=== PATIENT | male | born 1940 ===

== ENCOUNTER 2021-08-03 04:42 | Inpatient (IN) | payer MEDICARE ==
[2021-08-03] MEDS ORDERED: ZIPRASIDONE MESYLATE 20 MG VIAL IM ONE ×2 (05:16→06:08)
[2021-08-03] MEDS ORDERED: SODIUM CHLORIDE 0.9% 500 ML 500 ML IV ONE (05:43)
[2021-08-03] MEDS ORDERED: ACETAMINOPHEN 650 MG RECT SUPP PR STA (05:43)
--- NOTE | 2021-08-03 06:22 | XRay Report ---
CHEST 1 VIEW 08/03/2021 5:16 AM INDICATION / CLINICAL INFORMATION: possible Sepsis. COMPARISON: None available. FINDINGS: SUPPORT DEVICES: None. HEART / MEDIASTINUM: No significant abnormality. LUNGS / PLEURA: Mild pulmonary vascular indistinctness. There is no focal consolidation. No pneumotho rax. ADDITIONAL FINDINGS: No significant additional findings. IMPRESSION: 1. Pulmonary edema. Signer Name: Jordan Corey DO Signed: 08/03/2021 6:18 AM Workstation Name: [id number]
[2021-08-03 06:23] LABS: Mean Corpuscular HGB Conc 31 % (32-34); Mean Corpuscular Volume 82 fl (84-94); Platelet Count 258 K/mm3 (140-440); Red Blood Count 5.44 M/mm3 (3.65-5.03); Red Cell Distribution Width 14.9 % (13.2-15.2)
[2021-08-03 06:32] LABS: Hematocrit 44.6 % (35.5-45.6); Hemoglobin 13.8 gm/dl (11.8-15.2)
[2021-08-03 06:35] LABS: INR 1.02 (0.87-1.13)
[2021-08-03] MEDS ORDERED: SODIUM CHLORIDE 0.9% 1000 ML 1,000 ML IV ONE ×3 (06:42→08:31)
[2021-08-03 06:43] LABS: Albumin 4.1 g/dL (3.9-5); Calcium 9.1 mg/dL (8.4-10.2)
--- NOTE | 2021-08-03 06:44 | Emergency Department Report ---
HPI - General Chief Complaint: Urogenital-Male Time Seen by Provider: 08/03/21 06:07 - HPI HPI: This is a 81-year-old -Malag[place] male presents to the emergency department via EMS from his [facility] home with the complaint of a fever and altered mental status. He has a suprapubic Herring catheter in placed and apparently the patient has not been putting out any urine into the collection bag since at least 9 PM last night. He has a past medical history listed as hypertension, COPD, dementia, diabetes. Patient does present with a fever and tachycardia and a code sepsis was initiated. On investigation it appears that the tubing between the Herring catheter in the collection bag had been clamped accidentally. This patient came in prior to my shift starting. As per the overnight physician, the patient was very agitated and they were unable to start his evaluation without giving treatment/sedation. The patient received 20 mg of Geodon. ED Past Medical Hx - Past Medical History Previous Medical History?: Yes - Surgical History Past Surgical History?: Yes - Social History Smoking Status: Unknown if ever smoked ED Review of Systems ROS: Stated complaint: ABDOMINAL PAIN Other details as noted in HPI Comment: Unobtainable due to pts medical conditions Physical Exam - Physical Exam Vital Signs: Vital Signs 08/03/21 08/03/21 08/03/21 05:00 05:37 05:45 Temperature 101 F H Pulse Rate 132 H 120 H 119 H Respiratory 36 H 35 H 34 H Rate Blood Pressure 144/79 98/47 104/46 O2 Sat by Pulse 84 94 96 Oximetry 08/03/21 06:01 Temperature Pulse Rate 119 H Respiratory 29 H Rate Blood Pressure 96/48 O2 Sat by Pulse 97 Oximetry Physical Exam: GENERAL: The patient is well-developed well-nourished. HENT: Normocephalic. Atraumatic. Patient has moist mucous membranes. EYES: Pupils equal reactive to light bilaterally. NECK: Supple. Trachea is midline. CHEST/LUNGS: Clear to auscultation. There is no respiratory distress noted. HEART/CARDIOVASCULAR: Regular. There is no tachycardia. There is no murmur. ABDOMEN: Abdomen is soft, nontender. Patient has normal bowel sounds. There is no abdominal distention. Suprapubic Herring catheter in place. SKIN: Skin is warm and dry. NEURO: Patient is very sleepy after receiving sedation. He is arousable but goes right back to sleep if not continuously stimulated. Otherwise the patient just make some grunting sounds. MUSCULOSKELETAL: There is no obvious deformity. ED Course Vital Signs 08/03/21 08/03/21 08/03/21 05:00 05:37 05:45 Temperature 101 F H Pulse Rate 132 H 120 H 119 H Respiratory 36 H 35 H 34 H Rate Blood Pressure 144/79 98/47 104/46 O2 Sat by Pulse 84 94 96 Oximetry 08/03/21 06:01 Temperature Pulse Rate 119 H Respiratory 29 H Rate Blood Pressure 96/48 O2 Sat by Pulse 97 Oximetry - Reevaluation(s) Reevaluation #1: 08/03/21 06:51 Patient's chest x-ray shows some evidence of pulmonary edema. Therefore the patient will receive 500 cc of IV fluid resuscitation instead of the 30 cc/kg for the sepsis protocol, as the patient is not currently intubated and we do not want decompensation from volume overload. ED Medical Decision Making - Lab Data Result diagrams: 08/03/21 06:00 08/03/21 06:00 Lab Results 08/03/21 08/03/21 08/03/21 Range/Units 06:00 06:00 06:00 WBC 4.4 L (4.5-11.0) K/mm3 RBC 5.44 H (3.65-5.03) M/mm3 Hgb 13.8 (11.8-15.2) gm/dl Hct 44.6 (35.5-45.6) % MCV 82 L (84-94) fl MCH 25 L (28-32) pg MCHC 31 L (32-34) % RDW 14.9 (13.2-15.2) % Plt Count 258 (140-440) K/mm3 [place] % (Auto) 0.5 (0.0-7.3) % Eos % (Auto) 0.3 (0.0-4.3) % [place] # (Auto) 0.0 (0.0-0.8) K/mm3 Eos # (Auto) 0.0 (0.0-0.4) K/mm3 Baso # (Auto) 0.0 (0.0-0.1) K/mm3 Add Manual Diff Complete Total Counted 100 Seg Neutrophils % Diesel Locomotive Engineer Seg Neuts % (Manual) 92.0 H (40.0-70.0) % Band Neutrophils % 6.0 % Lymphocytes % (Manual) 1.0 L (13.4-35.0) % Monocytes % (Manual) 1.0 (0.0-7.3) % Nucleated RBC % Not Reportable Seg Neutrophils # 4.0 (1.8-7.7) K/mm3 Seg Neutrophils # Man 4.0 (1.8-7.7) K/mm3 Band Neutrophils # 0.3 K/mm3 Lymphocytes # (Manual) 0.0 L (1.2-5.4) K/mm3 Abs React Lymphs (Man) 0.0 K/mm3 Monocytes # (Manual) 0.0 (0.0-0.8) K/mm3 Eosinophils # (Manual) 0.0 (0.0-0.4) K/mm3 Basophils # (Manual) 0.0 (0.0-0.1) K/mm3 Metamyelocytes # 0.0 K/mm3 Myelocytes # 0.0 K/mm3 Promyelocytes # 0.0 K/mm3 Blast Cells # 0.0 K/mm3 WBC Morphology Not Reportable Hypersegmented Neuts Not Reportable Hyposegmented Neuts Not Reportable Hypogranular Neuts Not Reportable Smudge Cells Not Reportable Toxic Granulation Not Reportable Toxic Vacuolation Not Reportable Dohle Bodies Not Reportable Pelger-Huet Anomaly Not Reportable Stew Rods Not Reportable Platelet Estimate Consistent w auto Clumped Platelets Not Reportable Plt Clumps, EDTA Not Reportable Large Platelets 1+ Giant Platelets Not Reportable Platelet Satelliting Not Reportable Plt Morphology Comment Not Reportable RBC Morphology Not Reportable Dimorphic RBCs Not Reportable Polychromasia Not Reportable Hypochromasia 1+ Poikilocytosis Not Reportable Anisocytosis Not Reportable Microcytosis Not Reportable Macrocytosis Not Reportable Spherocytes Not Reportable Pappenheimer Bodies Not Reportable Sickle Cells Not Reportable Target Cells Not Reportable Tear Drop Cells Not Reportable Ovalocytes Not Reportable Helmet Cells Not Reportable Edwards-Cullomburg Bodies Not Reportable Irvine Rings Not Reportable [place] Cells Not Reportable Bite Cells Not Reportable Crenated Cell Not Reportable Elliptocytes Not Reportable Acanthocytes (Spur) Not Reportable Rouleaux Not Reportable Hemoglobin C Crystals Not Reportable Schistocytes Not Reportable Malaria parasites Not Reportable Nilesh Bodies Not Reportable Hem Pathologist Commnt No PT 14.5 (12.2-14.9) Sec. INR 1.02 (0.87-1.13) D-Dimer (0-234) ng/mlDDU VBG pH (7.320-7.420) Sodium 146 H (137-145) mmol/L Potassium 3.5 L (3.6-5.0) mmol/L Chloride 105.8 (98-107) mmol/L Carbon Dioxide 25 (22-30) mmol/L Anion Gap 19 mmol/L BUN 16 (9-20) mg/dL Creatinine 1.3 (0.8-1.3) mg/dL Estimated GFR 53 ml/min BUN/Creatinine Ratio 12 % Glucose 57 L (75-100) mg/dL Lactic Acid (0.7-2.0) mmol/L Calcium 9.1 (8.4-10.2) mg/dL Total Bilirubin 0.20 (0.1-1.2) mg/dL AST 20 (5-40) units/L ALT 14 (7-56) units/L Alkaline Phosphatase 121 (35-129) units/L Lactate Dehydrogenase (91-180) units/L C-Reactive Protein (0.00-1.30) mg/dL NT-Pro-B Natriuret Pep (0-900) pg/mL Total Protein 7.7 (6.3-8.2) g/dL Albumin 4.1 (3.9-5) g/dL Albumin/Globulin Ratio 1.1 % Urine Color (Yellow) Urine Turbidity (Clear) Urine pH (5.0-7.0) Ur Specific [place] (1.003-1.030) Urine Protein (Negative) mg/dL Urine Glucose (UA) (Negative) mg/dL Urine Ketones (Negative) mg/dL Urine Blood (Negative) Urine Nitrite (Negative) Urine Bilirubin (Negative) Urine Urobilinogen (<2.0) mg/dL Ur Leukocyte Esterase (Negative) Urine WBC (Auto) (0.0-6.0) /HPF Urine RBC (Auto) (0.0-6.0) /HPF U Epithel Cells (Auto) (0-13.0) /HPF Urine Bacteria (Auto) (Negative) /HPF Urine Mucus /HPF Ur Yeast w Hyphae /HPF Urine Yeast (Budding) /HPF 08/03/21 08/03/21 08/03/21 Range/Units 06:00 06:00 06:10 WBC (4.5-11.0) K/mm3 RBC (3.65-5.03) M/mm3 Hgb (11.8-15.2) gm/dl Hct (35.5-45.6) % MCV (84-94) fl MCH (28-32) pg MCHC (32-34) % RDW (13.2-15.2) % Plt Count (140-440) K/mm3 [place] % (Auto) (0.0-7.3) % Eos % (Auto) (0.0-4.3) % [place] # (Auto) (0.0-0.8) K/mm3 Eos # (Auto) (0.0-0.4) K/mm3 Baso # (Auto) (0.0-0.1) K/mm3 Add Manual Diff Total Counted Seg Neutrophils % Seg Neuts % (Manual) (40.0-70.0) % Band Neutrophils % % Lymphocytes % (Manual) (13.4-35.0) % Monocytes % (Manual) (0.0-7.3) % Nucleated RBC % Seg Neutrophils # (1.8-7.7) K/mm3 Seg Neutrophils # Man (1.8-7.7) K/mm3 Band Neutrophils # K/mm3 Lymphocytes # (Manual) (1.2-5.4) K/mm3 Abs React Lymphs (Man) K/mm3 Monocytes # (Manual) (0.0-0.8) K/mm3 Eosinophils # (Manual) (0.0-0.4) K/mm3 Basophils # (Manual) (0.0-0.1) K/mm3 Metamyelocytes # K/mm3 Myelocytes # K/mm3 Promyelocytes # K/mm3 Blast Cells # K/mm3 WBC Morphology Hypersegmented Neuts Hyposegmented Neuts Hypogranular Neuts Smudge Cells Toxic Granulation Toxic Vacuolation Dohle Bodies Pelger-Huet Anomaly Stew Rods Platelet Estimate Clumped Platelets Plt Clumps, EDTA Large Platelets Giant Platelets Platelet Satelliting Plt Morphology Comment RBC Morphology Dimorphic RBCs Polychromasia Hypochromasia Poikilocytosis Anisocytosis Microcytosis Macrocytosis Spherocytes Pappenheimer Bodies Sickle Cells Target Cells Tear Drop Cells Ovalocytes Helmet Cells Edwards-Cullomburg Bodies [place] Rings Mosca Cells Bite Cells Crenated Cell Elliptocytes Acanthocytes (Spur) Rouleaux Hemoglobin C Crystals Schistocytes Malaria parasites Nilesh Bodies Hem Pathologist Commnt PT (12.2-14.9) Sec. INR (0.87-1.13) D-Dimer (0-234) ng/mlDDU VBG pH 7.339 (7.320-7.420) Sodium (137-145) mmol/L Potassium (3.6-5.0) mmol/L Chloride (98-107) mmol/L Carbon Dioxide (22-30) mmol/L Anion Gap mmol/L BUN (9-20) mg/dL Creatinine (0.8-1.3) mg/dL Estimated GFR ml/min BUN/Creatinine Ratio % Glucose (75-100) mg/dL Lactic Acid 4.50 H* (0.7-2.0) mmol/L Calcium (8.4-10.2) mg/dL Total Bilirubin (0.1-1.2) mg/dL AST (5-40) units/L ALT (7-56) units/L Alkaline Phosphatase (35-129) units/L Lactate Dehydrogenase (91-180) units/L C-Reactive Protein (0.00-1.30) mg/dL NT-Pro-B Natriuret Pep (0-900) pg/mL Total Protein (6.3-8.2) g/dL Albumin (3.9-5) g/dL Albumin/Globulin Ratio % Urine Color Red (Yellow) Urine Turbidity Cloudy (Clear) Urine pH 5.0 (5.0-7.0) Ur Specific [place] 1.019 (1.003-1.030) Urine Protein 100 mg/dl (Negative) mg/dL Urine Glucose (UA) Neg (Negative) mg/dL Urine Ketones Neg (Negative) mg/dL Urine Blood Lg (Negative) Urine Nitrite Pos (Negative) Urine Bilirubin Neg (Negative) Urine Urobilinogen < 2.0 (<2.0) mg/dL Ur Leukocyte Esterase Mod (Negative) Urine WBC (Auto) > 182.0 H (0.0-6.0) /HPF Urine RBC (Auto) > 182.0 (0.0-6.0) /HPF U Epithel Cells (Auto) 6.0 (0-13.0) /HPF Urine Bacteria (Auto) 3+ (Negative) /HPF Urine Mucus Few /HPF Ur Yeast w Hyphae 2+ /HPF Urine Yeast (Budding) 3+ /HPF 08/03/21 08/03/21 08/03/21 Range/Units 08:01 08:01 08:01 WBC (4.5-11.0) K/mm3 RBC (3.65-5.03) M/mm3 Hgb (11.8-15.2) gm/dl Hct (35.5-45.6) % MCV (84-94) fl MCH (28-32) pg MCHC (32-34) % RDW (13.2-15.2) % Plt Count (140-440) K/mm3 [place] % (Auto) (0.0-7.3) % Eos % (Auto) (0.0-4.3) % [place] # (Auto) (0.0-0.8) K/mm3 Eos # (Auto) (0.0-0.4) K/mm3 Baso # (Auto) (0.0-0.1) K/mm3 Add Manual Diff Total Counted Seg Neutrophils % Seg Neuts % (Manual) (40.0-70.0) % Band Neutrophils % % Lymphocytes % (Manual) (13.4-35.0) % Monocytes % (Manual) (0.0-7.3) % Nucleated RBC % Seg Neutrophils # (1.8-7.7) K/mm3 Seg Neutrophils # Man (1.8-7.7) K/mm3 Band Neutrophils # K/mm3 Lymphocytes # (Manual) (1.2-5.4) K/mm3 Abs React Lymphs (Man) K/mm3 Monocytes # (Manual) (0.0-0.8) K/mm3 Eosinophils # (Manual) (0.0-0.4) K/mm3 Basophils # (Manual) (0.0-0.1) K/mm3 Metamyelocytes # K/mm3 Myelocytes # K/mm3 Promyelocytes # K/mm3 Blast Cells # K/mm3 WBC Morphology Hypersegmented Neuts Hyposegmented Neuts Hypogranular Neuts Smudge Cells Toxic Granulation Toxic Vacuolation Dohle Bodies Pelger-Huet Anomaly Stew Rods Platelet Estimate Clumped Platelets Plt Clumps, EDTA Large Platelets Giant Platelets Platelet Satelliting Plt Morphology Comment RBC Morphology Dimorphic RBCs Polychromasia Hypochromasia Poikilocytosis Anisocytosis Microcytosis Macrocytosis Spherocytes Pappenheimer Bodies Sickle Cells Target Cells Tear Drop Cells Ovalocytes Helmet Cells Edwards-Cullomburg Bodies Irvine Rings Mosca Cells Bite Cells Crenated Cell Elliptocytes Acanthocytes (Spur) Rouleaux Hemoglobin C Crystals Schistocytes Malaria parasites Nilesh Bodies Hem Pathologist Commnt PT (12.2-14.9) Sec. INR (0.87-1.13) D-Dimer 1601.31 H (0-234) ng/mlDDU VBG pH (7.320-7.420) Sodium (137-145) mmol/L Potassium (3.6-5.0) mmol/L Chloride (98-107) mmol/L Carbon Dioxide (22-30) mmol/L Anion Gap mmol/L BUN (9-20) mg/dL Creatinine (0.8-1.3) mg/dL Estimated GFR ml/min BUN/Creatinine Ratio % Glucose (75-100) mg/dL Lactic Acid 3.20 H* (0.7-2.0) mmol/L Calcium (8.4-10.2) mg/dL Total Bilirubin (0.1-1.2) mg/dL AST (5-40) units/L ALT (7-56) units/L Alkaline Phosphatase (35-129) units/L Lactate Dehydrogenase 281 H (91-180) units/L C-Reactive Protein 0.30 (0.00-1.30) mg/dL NT-Pro-B Natriuret Pep 66.77 (0-900) pg/mL Total Protein (6.3-8.2) g/dL Albumin (3.9-5) g/dL Albumin/Globulin Ratio % Urine Color (Yellow) Urine Turbidity (Clear) Urine pH (5.0-7.0) Ur Specific [place] (1.003-1.030) Urine Protein (Negative) mg/dL Urine Glucose (UA) (Negative) mg/dL Urine Ketones (Negative) mg/dL Urine Blood (Negative) Urine Nitrite (Negative) Urine Bilirubin (Negative) Urine Urobilinogen (<2.0) mg/dL Ur Leukocyte Esterase (Negative) Urine WBC (Auto) (0.0-6.0) /HPF Urine RBC (Auto) (0.0-6.0) /HPF U Epithel Cells (Auto) (0-13.0) /HPF Urine Bacteria (Auto) (Negative) /HPF Urine Mucus /HPF Ur Yeast w Hyphae /HPF Urine Yeast (Budding) /HPF - EKG Data -: EKG Interpreted by Me EKG shows normal: sinus rhythm, axis (Right axis deviation), intervals (Prolonged QTC), QRS complexes (Right bundle branch block), ST-T waves Rate: tachycardia (119 bpm) - EKG Data When compared to previous EKG there are: previous EKG unavailable Interpretation: other (Sinus tachycardia at 119 bpm, right axis deviation, right bundle branch block, prolonged QTC.) - Radiology Data Radiology results: report reviewed CTA CHEST WITH CONTRAST INDICATION : SOB, elevated dimer OMNI 350 100 ML. TECHNIQUE: Axial imaging performed through the chest, with contrast bolus timing set to maximize opacification of the pulmonary arteries. Sagittal and coronal reformatted images. 3-plane MIP reformatted images were obtained. All CT scans at this location are performed using CT dose reduction for ALARA by means of automated exposure control. 100 mL of intravenous contrast administered. COMPARISON: AP chest performed earlier today FINDINGS: Bolus: Contrast bolus timing is adequate. PTE: Resolution is slightly limited in the distal small pulmonary arteries secondary to patient breathing motion artifact. No large central pulmonary embolus is detected. Mediastinum: Heart size is within normal limits. No pericardial effusion. Normal aorta. There are multiple borderline to mildly enlarged mediastinal lymph nodes in the paratracheal chain, subcarinal chain, bilateral hilar chains and AP window. Lymph nodes measure up to 1.6 cm in short axis. Lungs: There is minor atelectasis along the major fissure in the inferior right lung. No consolidation, pleural effusion or pneumothorax is identified. Bones: Degenerative changes in the spine with nothing acute. Upper abdomen: A few borderline celiac axis lymph nodes are noted measuring up to 1.1 cm in short axis. The remaining visualized upper abdominal viscera are unremarkable. IMPRESSION: Slightly limited exam by post breathing motion artifact but no obvious pulmonary embolus is detected. Mild mediastinal and upper abdominal adenopathy as described above. Lymphoma or metastatic process cannot be excluded. No suspicious pulmonary mass is detected. Please correlate with the clinical history of the patient. PET CT may prove useful in this patient. CHEST 1 VIEW 08/03/2021 5:16 AM INDICATION / CLINICAL INFORMATION: possible Sepsis. COMPARISON: None available. FINDINGS: SUPPORT DEVICES: None. HEART / MEDIASTINUM: No significant abnormality. LUNGS / PLEURA: Mild pulmonary vascular indistinctness. There is no focal consolidation. No pneumothorax. ADDITIONAL FINDINGS: No significant additional findings. IMPRESSION: 1. Pulmonary edema. - Medical Decision Making This patient was sent in from his personal intermediate for fever and altered mental status. The patient arrived prior to my shift starting and was very combative and received a dose of Geodon. Apparently there was concern that the patient was not having any urine output, but the suprapubic catheter had been accidentally clamped. The urine does appear infected, however. Patient also had a room air oxygen saturation of 84% and was placed on oxygen via 4 L nasal cannula. Patient presents with a fever and tachycardia and a code sepsis was initiated. He was given IV antibiotics and IV fluid resuscitation. Initially he was just given the 500 cc of normal saline to satisfy the sepsis criteria due to a chest x-ray that was read by radiology as showing pulmonary edema. Patient was later given more IV fluid. EKG did not have any morphology consistent with ST elevation myocardial infarction. Labs show mild hypoglycemia, lactic acidosis, a very elevated D-dimer level, elevated LDH. CT angiography of the chest does not show any PE, dissection, or any other acute process other than some lymphadenopathy. Patient will be admitted to the hospital for further evaluation and treatment and was accepted for admission by the hospitalist service. Critical Care Time: Yes Critical care time in (mins) excluding proc time.: 35 Critical care attestation.: If time is entered above; I have spent that time in minutes in the direct care of this critically ill patient, excluding procedure time. Critical care time spent on this patient's initial examination, multiple reevaluations, ordering and interpretation of labs and imaging, IV fluid and IV antibiotics for treatment of his urosepsis, discussion with the hospitalist service. ED Disposition Clinical Impression: Suspected 2019 novel coronavirus infection, Hypoxia Sepsis Qualifiers: Sepsis type: sepsis due to unspecified organism Sepsis acute organ dysfunction status: unspecified Qualified Code(s): A41.9 - Sepsis, unspecified organism UTI (urinary tract infection) Qualifiers: Urinary tract infection type: acute cystitis Hematuria presence: with hematuria Qualified Code(s): N30.01 - Acute cystitis with hematuria Hematuria Qualifiers: Hematuria type: unspecified type Qualified Code(s): R31.9 - Hematuria, unspecified Disposition: 09 ADMITTED INPATIENT Is pt being admited?: Yes Condition: Serious Time of Disposition: 08:34
[2021-08-03] MEDS ORDERED: DEXTROSE 50% IN WATER (25GM) 50 ML SYRINGE IV ONE (06:49)
[2021-08-03] MEDS ORDERED: cefTRIAXone/NS 1 GM/50 ML 1 GM/50 ML BAG IV ONE (06:49)
[2021-08-03 08:06] LABS: Bacteria,Urine 3+ /HPF (Negative); Bilirubin,Urine NEG (Negative); Blood,Urine LG (Negative); Color,Urine Red (Yellow); Mucus,Urine FEW /HPF; Urobilinogen,Urine < 2.0 mg/dL (<2.0)
[2021-08-03 08:13] LABS: RBC,Urine > 182.0 /HPF (0.0-6.0); WBC,Urine > 182.0 /HPF (0.0-6.0)
[2021-08-03 08:24] LABS: C-Reactive Protein 0.3 mg/dL (0.00-1.30)
[2021-08-03 08:45] LABS: Total Cells Counted 100
[2021-08-03 08:46] LABS: Band Neutrophils # (Manual) 0.3 K/mm3; Hypochromasia 1+; Large Platelets 1+; Platelet Estimate Consistent w Auto
[2021-08-03] MEDS ORDERED: ONDANSETRON 4 MG/2 ML INJ IV PRN (08:57)
[2021-08-03] MEDS ORDERED: ACETAMINOPHEN 325 MG TAB PO PRN (08:57)
[2021-08-03] MEDS ORDERED: oxyCODONE /ACETAMINOPHEN 5-325MG TAB PO PRN (08:57)
[2021-08-03] MEDS ORDERED: cefTRIAXone/NS 1 GM/50 ML 1 GM/50 ML BAG IV SCH (09:00)
[2021-08-03] MEDS ORDERED: ALBUTEROL 2.5 MG/3 ML NEBU IH PRN (09:01)
[2021-08-03 09:56] LABS: Eosinophils % (Auto) 0.3 % (0.0-4.3); Monocytes % (Auto) 0.5 % (0.0-7.3)
[2021-08-03] MEDS ORDERED: ENOXAPARIN 30 MG/0.3 ML INJ SUB-Q SCH (10:00)
--- NOTE | 2021-08-03 10:03 | Cat Scan Report ---
CTA CHEST WITH CONTRAST INDICATION : SOB, elevated dimer OMNI 350 100 ML. TECHNIQUE: Axial imaging performed through the chest, with contrast bolus timing set to maximize opa cification of the pulmonary arteries. Sagittal and coronal reformatted images. 3-plane MIP reformatte d images were obtained. All CT scans at this location are performed using CT dose reduction for ALAR A by means of automated exposure control. 100 mL of intravenous contrast administered. COMPARISON: AP chest performed earlier today FINDINGS: Bolus: Contrast bolus timing is adequate. PTE: Resolution is slightly limited in the distal small pulmonary arteries secondary to patient margaux thing motion artifact. No large central pulmonary embolus is detected. Mediastinum: Heart size is within normal limits. No pericardial effusion. Normal aorta. There are mu ltiple borderline to mildly enlarged mediastinal lymph nodes in the paratracheal chain, subcarinal ch ain, bilateral hilar chains and AP window. Lymph nodes measure up to 1.6 cm in short axis. Lungs: There is minor atelectasis along the major fissure in the inferior right lung. No consolidati on, pleural effusion or pneumothorax is identified. Bones: Degenerative changes in the spine with nothing acute. Upper abdomen: A few borderline celiac axis lymph nodes are noted measuring up to 1.1 cm in short ax is. The remaining visualized upper abdominal viscera are unremarkable. IMPRESSION: Slightly limited exam by post breathing motion artifact but no obvious pulmonary embolus is detected . Mild mediastinal and upper abdominal adenopathy as described above. Lymphoma or metastatic process ca nnot be excluded. No suspicious pulmonary mass is detected. Please correlate with the clinical histor y of the patient. PET CT may prove useful in this patient. Signer Name: Krishna Munoz Jr, MD Signed: 08/03/2021 9:58 AM Workstation Name: [id number]
[2021-08-03] MEDS: ENOXAPARIN 40 MG/0.4 ML INJ SUB-Q SCH (11:00)
[2021-08-03] MEDS: INSULIN REGULAR, HUMAN 100 UNITS/1 ML SUB-Q SCH ×2 (11:04→16:22)
[2021-08-03] MEDS ORDERED: ACETAMINOPHEN 650 MG RECT SUPP PR ONE (11:17)
[2021-08-03] MEDS ORDERED: ACETAMINOPHEN 325 MG RECT SUPP PR ONE (11:17)
[2021-08-03] MEDS ORDERED: ACETAMINOPHEN 325 MG RECT SUPP PR PRN (11:23)
[2021-08-03] MEDS ORDERED: ACETAMINOPHEN 650 MG RECT SUPP PR PRN (11:23)
--- NOTE | 2021-08-03 11:56 | History and Physical Report ---
History of Present Illness Date of admission: 08/03/21 08:57 Chief complaint: Acute metabolic encephalopathy History of present illness: 81-year-old male presenting to our facility from [facility] with complaint of fever and acute metabolic encephalopathy. History was unable to be obtained from patient due to mental status and inability to reach family and, thus, obtained from chart. Patient has a chronic suprapubic Herring which has not had any output since 9 PM from the night prior. Per ED report, it appeared as though the Herring catheter in collection bag was accidentally clamped. Patient also was very agitated on arrival requiring sedation for appropriate evaluation. ROS unable to be obtained due to patient mental status ED Course: Geodon 20 mg IV, Rocephin IV, IV fluid PMHx: Hypertension, COPD, dementia, diabetes PSHx: Unknown FHx: Unknown SHx: Tobacco use-unknown ETOH Use-unknown Recreational Drug Use-unknown Local resident at [facility] Medications and Allergies Allergies Allergy/AdvReac Type Severity Reaction Status Date / Time No Known Allergies Allergy Verified 08/03/21 05:45 Active Meds: Active Medications Acetaminophen (Acetaminophen 325 Mg Tab) 650 mg PO Q4H PRN PRN Reason: Pain MILD(1-3)/Fever >100.5/CANDELARIA Acetaminophen (Acetaminophen 650 Mg Rect Supp) 650 mg NV Q4H PRN PRN Reason: Pain, Mild (1-3) Last Admin: 08/03/21 11:25 Dose: 650 mg Documented by: Acetaminophen (Acetaminophen 325 Mg Rect Supp) 325 mg NV Q6H PRN PRN Reason: Fever >101 Last Admin: 08/03/21 11:25 Dose: 325 mg Documented by: Albuterol (Albuterol 2.5 Mg/3 Ml Nebu) 2.5 mg IH Q4H PRN PRN Reason: Shortness Of Breath Dextrose (Dextrose 50% In Water (25gm) 50 Ml Syringe) 50 ml IV Q30MIN PRN; Protocol PRN Reason: Hypoglycemia Enoxaparin Sodium (Enoxaparin 40 Mg/0.4 Ml Inj) 40 mg SUB-Q QDAY@1000 YONY Last Admin: 08/03/21 11:00 Dose: 40 mg Documented by: Ceftriaxone Sodium (Rocephin/Ns 1 Gm/50 Ml) 1 gm in 50 mls @ 100 mls/hr IV Q24H YONY Insulin Human Regular (Insulin Regular, Human 100 Units/1 Ml) 0 units SUB-Q ACHS [facility]; Protocol Last Admin: 08/03/21 11:04 Dose: Not Given Documented by: Ondansetron HCl (Ondansetron 4 Mg/2 Ml Inj) 4 mg IV Q8H PRN PRN Reason: Nausea And Vomiting Oxycodone/Acetaminophen (Oxycodone /Acetaminophen 5-325mg Tab) 1 tab PO Q6H PRN PRN Reason: Pain, Moderate (4-6) Sodium Chloride (Sodium Chloride 0.9% 10 Ml Flush Syringe) 10 ml IV BID [facility] Last Admin: 08/03/21 09:43 Dose: 10 ml Documented by: Sodium Chloride (Sodium Chloride 0.9% 10 Ml Flush Syringe) 10 ml IV PRN PRN PRN Reason: LINE FLUSH Review of Systems ROS unobtainable: due to mental status Exam - Physical Exam Narrative exam: Physical Exam: VITAL SIGNS: Reviewed. GENERAL: Elderly gentleman, ill appearing, obtunded but protecting airway. Vital signs as documented. HEAD: No signs of head trauma. EYES: Pupils are equal. Extraocular motions intact. EARS: Hearing grossly intact. MOUTH: Oropharynx is dry. NECK: No adenopathy, no JVD. CHEST: Chest with bilateral rales on auscultation. CARDIAC: Regular rate and rhythm. S1 and S2, without murmurs, gallops, or rubs. VASCULAR: Bilateral pitting edema 1-2+. Peripheral pulses normal and equal in all extremities. ABDOMEN: Soft, non tender and non distended. No rebound or guarding, and no masses palpated. Bowel Sounds normal. MUSCULOSKELETAL: Good range of motion of all major joints. Extremities without clubbing, cyanosis or edema. NEUROLOGIC EXAM: Not alert or oriented could not be verified as patient is obtunded. no focal sensory or strength deficits. PSYCHIATRIC: Mood normal. SKIN: detail exam as documented in skin assessment - Constitutional Vitals: Temp Pulse Resp BP Pulse Ox 102 F H 113 H 18 127/45 98 08/03/21 11:24 08/03/21 08:15 08/03/21 08:32 08/03/21 08:15 08/03/21 11:43 Results - Labs CBC & Chem 7: 08/03/21 06:00 08/03/21 06:00 Labs: Laboratory Last Values WBC 4.4 K/mm3 (4.5-11.0) L 08/03/21 06:00 RBC 5.44 M/mm3 (3.65-5.03) H 08/03/21 06:00 Hgb 13.8 gm/dl (11.8-15.2) 08/03/21 06:00 Hct 44.6 % (35.5-45.6) 08/03/21 06:00 MCV 82 fl (84-94) L 08/03/21 06:00 MCH 25 pg (28-32) L 08/03/21 06:00 MCHC 31 % (32-34) L 08/03/21 06:00 RDW 14.9 % (13.2-15.2) 08/03/21 06:00 Plt Count 258 K/mm3 (140-440) 08/03/21 06:00 [place] % (Auto) 0.5 % (0.0-7.3) 08/03/21 06:00 Eos % (Auto) 0.3 % (0.0-4.3) 08/03/21 06:00 [place] # (Auto) 0.0 K/mm3 (0.0-0.8) 08/03/21 06:00 Eos # (Auto) 0.0 K/mm3 (0.0-0.4) 08/03/21 06:00 Baso # (Auto) 0.0 K/mm3 (0.0-0.1) 08/03/21 06:00 Add Manual Diff Complete 08/03/21 06:00 Total Counted 100 08/03/21 06:00 Seg Neutrophils % [employer] 08/03/21 06:00 Seg Neuts % (Manual) 92.0 % (40.0-70.0) H 08/03/21 06:00 Band Neutrophils % 6.0 % 08/03/21 06:00 Lymphocytes % (Manual) 1.0 % (13.4-35.0) L 08/03/21 06:00 Monocytes % (Manual) 1.0 % (0.0-7.3) 08/03/21 06:00 Nucleated RBC % Not Reportable 08/03/21 06:00 Seg Neutrophils # 4.0 K/mm3 (1.8-7.7) 08/03/21 06:00 Seg Neutrophils # Man 4.0 K/mm3 (1.8-7.7) 08/03/21 06:00 Band Neutrophils # 0.3 K/mm3 08/03/21 06:00 Lymphocytes # (Manual) 0.0 K/mm3 (1.2-5.4) L 08/03/21 06:00 Abs React Lymphs (Man) 0.0 K/mm3 08/03/21 06:00 Monocytes # (Manual) 0.0 K/mm3 (0.0-0.8) 08/03/21 06:00 Eosinophils # (Manual) 0.0 K/mm3 (0.0-0.4) 08/03/21 06:00 Basophils # (Manual) 0.0 K/mm3 (0.0-0.1) 08/03/21 06:00 Metamyelocytes # 0.0 K/mm3 08/03/21 06:00 Myelocytes # 0.0 K/mm3 08/03/21 06:00 Promyelocytes # 0.0 K/mm3 08/03/21 06:00 Blast Cells # 0.0 K/mm3 08/03/21 06:00 WBC Morphology Not Reportable 08/03/21 06:00 Hypersegmented Neuts Not Reportable 08/03/21 06:00 Hyposegmented Neuts Not Reportable 08/03/21 06:00 Hypogranular Neuts Not Reportable 08/03/21 06:00 Smudge Cells Not Reportable 08/03/21 06:00 Toxic Granulation Not Reportable 08/03/21 06:00 Toxic Vacuolation Not Reportable 08/03/21 06:00 Dohle Bodies Not Reportable 08/03/21 06:00 Pelger-Huet Anomaly Not Reportable 08/03/21 06:00 Stew Rods Not Reportable 08/03/21 06:00 Platelet Estimate Consistent w auto 08/03/21 06:00 Clumped Platelets Not Reportable 08/03/21 06:00 Plt Clumps, EDTA Not Reportable 08/03/21 06:00 Large Platelets 1+ 08/03/21 06:00 Giant Platelets Not Reportable 08/03/21 06:00 Platelet Satelliting Not Reportable 08/03/21 06:00 Plt Morphology Comment Not Reportable 08/03/21 06:00 RBC Morphology Not Reportable 08/03/21 06:00 Dimorphic RBCs Not Reportable 08/03/21 06:00 Polychromasia Not Reportable 08/03/21 06:00 Hypochromasia 1+ 08/03/21 06:00 Poikilocytosis Not Reportable 08/03/21 06:00 Anisocytosis Not Reportable 08/03/21 06:00 Microcytosis Not Reportable 08/03/21 06:00 Macrocytosis Not Reportable 08/03/21 06:00 Spherocytes Not Reportable 08/03/21 06:00 Pappenheimer Bodies Not Reportable 08/03/21 06:00 Sickle Cells Not Reportable 08/03/21 06:00 Target Cells Not Reportable 08/03/21 06:00 Tear Drop Cells Not Reportable 08/03/21 06:00 Ovalocytes Not Reportable 08/03/21 06:00 Helmet Cells Not Reportable 08/03/21 06:00 [place] Bodies Not Reportable 08/03/21 06:00 [place] Rings Not Reportable 08/03/21 06:00 [place] Cells Not Reportable 08/03/21 06:00 Bite Cells Not Reportable 08/03/21 06:00 Crenated Cell Not Reportable 08/03/21 06:00 Elliptocytes Not Reportable 08/03/21 06:00 Acanthocytes (Spur) Not Reportable 08/03/21 06:00 Rouleaux Not Reportable 08/03/21 06:00 Hemoglobin C Crystals Not Reportable 08/03/21 06:00 Schistocytes Not Reportable 08/03/21 06:00 Malaria parasites Not Reportable 08/03/21 06:00 Nilesh Bodies Not Reportable 08/03/21 06:00 Hem Pathologist Commnt No 08/03/21 06:00 PT 14.5 Sec. (12.2-14.9) 08/03/21 06:00 INR 1.02 (0.87-1.13) 08/03/21 06:00 D-Dimer 1601.31 ng/mlDDU (0-234) H 08/03/21 08:01 VBG pH 7.339 (7.320-7.420) 08/03/21 06:00 Sodium 146 mmol/L (137-145) H 08/03/21 06:00 Potassium 3.5 mmol/L (3.6-5.0) L 08/03/21 06:00 Chloride 105.8 mmol/L (98-107) 08/03/21 06:00 Carbon Dioxide 25 mmol/L (22-30) 08/03/21 06:00 Anion Gap 19 mmol/L 08/03/21 06:00 BUN 16 mg/dL (9-20) 08/03/21 06:00 Creatinine 1.3 mg/dL (0.8-1.3) 08/03/21 06:00 Estimated GFR 53 ml/min 08/03/21 06:00 BUN/Creatinine Ratio 12 % 08/03/21 06:00 Glucose 57 mg/dL (75-100) L 08/03/21 06:00 POC Glucose 52 mg/dL (70-105) L 08/03/21 11:01 Lactic Acid 3.20 mmol/L (0.7-2.0) H* 08/03/21 08:01 Calcium 9.1 mg/dL (8.4-10.2) 08/03/21 06:00 Total Bilirubin 0.20 mg/dL (0.1-1.2) 08/03/21 06:00 AST 20 units/L (5-40) 08/03/21 06:00 ALT 14 units/L (7-56) 08/03/21 06:00 Alkaline Phosphatase 121 units/L (35-129) 08/03/21 06:00 Lactate Dehydrogenase 281 units/L (91-180) H 08/03/21 08:01 C-Reactive Protein 0.30 mg/dL (0.00-1.30) 08/03/21 08:01 NT-Pro-B Natriuret Pep 66.77 pg/mL (0-900) 08/03/21 08:01 Total Protein 7.7 g/dL (6.3-8.2) 08/03/21 06:00 Albumin 4.1 g/dL (3.9-5) 08/03/21 06:00 Albumin/Globulin Ratio 1.1 % 08/03/21 06:00 Urine Color Red (Yellow) 08/03/21 06:10 Urine Turbidity Cloudy (Clear) 08/03/21 06:10 Urine pH 5.0 (5.0-7.0) 08/03/21 06:10 Ur Specific [place] 1.019 (1.003-1.030) 08/03/21 06:10 Urine Protein 100 mg/dl mg/dL (Negative) 08/03/21 06:10 Urine Glucose (UA) Neg mg/dL (Negative) 08/03/21 06:10 Urine Ketones Neg mg/dL (Negative) 08/03/21 06:10 Urine Blood Lg (Negative) 08/03/21 06:10 Urine Nitrite Pos (Negative) 08/03/21 06:10 Urine Bilirubin Neg (Negative) 08/03/21 06:10 Urine Urobilinogen < 2.0 mg/dL (<2.0) 08/03/21 06:10 Ur Leukocyte Esterase Mod (Negative) 08/03/21 06:10 Urine WBC (Auto) > 182.0 /HPF (0.0-6.0) H 08/03/21 06:10 Urine RBC (Auto) > 182.0 /HPF (0.0-6.0) 08/03/21 06:10 U Epithel Cells (Auto) 6.0 /HPF (0-13.0) 08/03/21 06:10 Urine Bacteria (Auto) 3+ /HPF (Negative) 08/03/21 06:10 Urine Mucus Few /HPF 08/03/21 06:10 Ur Yeast w Hyphae 2+ /HPF 08/03/21 06:10 Urine Yeast (Budding) 3+ /HPF 08/03/21 06:10 Microbiology: Microbiology 08/03/21 05:52 Peripheral/Venous Blood Culture - Preliminary Culture in Progress 08/03/21 06:00 Peripheral/Venous Blood Culture - Preliminary Culture in Progress Assessment and Plan Assessment and plan: Assessment and plan #Acute metabolic encephalopathy - Agitated on arrival requiring Geodon - On my encounter, confused, obtunded, however patient is protecting airway. - per reports ,patient mental status - unclear baseline, will need to call facility to evaluate #Severe Sepsis - tachycardic and febrile on arrival, suprapubic catheter likely source - lactic acid 4.5- > 3.2. - management as under UTI #Urinary tract infection - given systemic symptoms will treat as presumed UTI. Patient apparently had no output in Herring collection bag. Apparently Herring collection bag had been clamped accidentally - UA demonstrate elevated WBC and LE however this is likely colonization from chronic suprapubic catheter. - Rocephin IV #Pulmonary edema - Currently 100% on 2L on encounter, will de-escalate as patient tolerates. - noted on CXR, patient also has findings of bilateral - fluid restriction given exam findings. - ECHO ordered, unclear cardiac hx. #Mediastinal adenopathy - noted on CTA chest, suggestive of possible lymphoma. Radiology recommend PET/CT, can obtain OP. #Hypoglycemia - BG 52 on admission - hypoglycemic protocol Dispo: Pending improvement of mental status. Will attempt to reach out to [facility] to obtain more information.
[2021-08-03] MEDS: DEXTROSE 50% IN WATER (25GM) 50 ML SYRINGE IV PRN ×2 (16:29→21:00)
[2021-08-03] MEDS ORDERED: DEXTROSE 5% IN WATER 1,000 ML IV ONE (16:46)
[2021-08-03 21:49] LABS: BUN/Creatinine Ratio 13; Blood Urea Nitrogen 13 mg/dL (9-20); Calcium 7.8 mg/dL (8.4-10.2); Hemolysis Index 14
[2021-08-03] MEDS ORDERED: DEXTROSE 10% IN WATER 1,000 ML IV SCH (22:00)
[2021-08-04] MEDS: INSULIN REGULAR, HUMAN 100 UNITS/1 ML SUB-Q SCH ×5 (01:45→22:47)
[2021-08-04 05:48] LABS: Hematocrit 39.9 % (35.5-45.6); Hemoglobin 12.7 gm/dl (11.8-15.2); Mean Corpuscular HGB Conc 32 % (32-34); Mean Corpuscular Volume 82 fl (84-94); Platelet Count 203 K/mm3 (140-440); Red Blood Count 4.87 M/mm3 (3.65-5.03); Red Cell Distribution Width 15.2 % (13.2-15.2)
[2021-08-04 06:02] LABS: BUN/Creatinine Ratio 12; Blood Urea Nitrogen 12 mg/dL (9-20); Calcium 8.2 mg/dL (8.4-10.2); Hemolysis Index 9
[2021-08-04 08:16] LABS: Band Neutrophils # (Manual) 0.2 K/mm3; Total Cells Counted 100
[2021-08-04 08:17] LABS: Anisocytosis Few
[2021-08-04] MEDS: cefTRIAXone/NS 1 GM/50 ML 1 GM/50 ML BAG IV SCH (09:47)
[2021-08-04] MEDS: ENOXAPARIN 40 MG/0.4 ML INJ SUB-Q SCH (09:47)
--- NOTE | 2021-08-04 12:18 | Electrocardiograph Report ---
Test Date: 2021-08-03 Test Time: 05:54:33 Pat Name: DAVID JOEL Department: Room: A465 Gender: M Store Consultant: CHARLIE : 1940 Requested By: ED DOC Order Number: [id number] Reading MD: Maritza Molina Measurements Intervals [place] Rate: 119 P: 0 VA: 57 QRS: -87 QRSD: 163 T: 82 QT: 428 QTc: 600 Interpretive Statements Sinus tachycardia Right bundle branch block ST elevation secondary to IVCD No previous ECG available for comparison Electronically Signed On 08-04-2021 12:17:37 EDT by Maritza Molina
--- NOTE | 2021-08-04 12:48 | Progress Note ---
Assessment and Plan Assessment and plan: Hospital course to date 08/04: Patient more alert and oriented to self only. Requiring restraints this a.m. while in the emergency department but improved on subsequent encounter. Patient BG still dropped to 70's despite maintaining over 100 the last few readings so will still need frequent monitoring. Diet not resumed, d5w and prn d50 on dec in case blood sugar remains problematic. Anticipate discharge in next 1 to 2 days. Assessment and plan #Acute metabolic encephalopathy - Agitated on arrival requiring Geodon - On my encounter, confused, obtunded, however patient is protecting airway. - per reports ,patient mental status - unclear baseline, will need to call facility to evaluate #Severe Sepsis - tachycardic and febrile on arrival, suprapubic catheter likely source - lactic acid 4.5- > 3.2. - management as under UTI #Urinary tract infection - given systemic symptoms will treat as presumed UTI. Patient apparently had no output in Herring collection bag. Apparently Herring collection bag had been clamped accidentally - UA demonstrate elevated WBC and LE however this is likely colonization from chronic suprapubic catheter. - Rocephin IV #Pulmonary edema - Currently 100% on 2L on encounter, will de-escalate as patient tolerates. - noted on CXR, patient also has findings of bilateral - fluid restriction given exam findings. - ECHO ordered, unclear cardiac hx. #Mediastinal adenopathy - noted on CTA chest, suggestive of possible lymphoma. Radiology recommend PET/CT, can obtain OP. #Hypoglycemia - BG 52 on admission - hypoglycemic protocol - low blood sugar readings overnight The high probability of a clinically significant, sudden or life threatening deterioration of the [pulmonary, neuro] system(s) required my full and direct attention, intervention and personal management. The aggregate critical care time was [60] minutes. This time is in addition to time spent performing reported procedures but includes the following: [x] Data Review and interpretation [x] Patient assessment and monitoring of vital signs [x] Documentation [x] Medication orders and management History Interval history: More alert and oriented to self. Hospitalist Physical - Physical exam Narrative exam: Physical Exam: VITAL SIGNS: Reviewed. GENERAL: Elderly gentleman, ill appearing, more alert but confused on encounter.. Vital signs as documented. HEAD: No signs of head trauma. EYES: Pupils are equal. Extraocular motions intact. EARS: Hearing grossly intact. MOUTH: Oropharynx is dry. NECK: No adenopathy, no JVD. CHEST: Chest with bilateral rales on auscultation. CARDIAC: Regular rate and rhythm. S1 and S2, without murmurs, gallops, or rubs. VASCULAR: Bilateral pitting edema 1-2+. Peripheral pulses normal and equal in all extremities. ABDOMEN: Soft, non tender and non distended. No rebound or guarding, and no masses palpated. Bowel Sounds normal. MUSCULOSKELETAL: Good range of motion of all major joints. Extremities without clubbing, cyanosis or edema. NEUROLOGIC EXAM: Alert oriented x 1 to self. no focal sensory or strength deficits. PSYCHIATRIC: Mood normal. SKIN: detail exam as documented in skin assessment - Constitutional Vitals: Temp Pulse Resp BP Pulse Ox 98.8 F 97 H 19 98/60 94 08/03/21 16:22 08/04/21 08:15 08/04/21 08:15 08/04/21 08:31 08/04/21 08:31 Results - Labs CBC & Chem 7: 08/04/21 05:05 08/04/21 05:05 Labs: Laboratory Last Values WBC 10.4 K/mm3 (4.5-11.0) 08/04/21 05:05 RBC 4.87 M/mm3 (3.65-5.03) 08/04/21 05:05 Hgb 12.7 gm/dl (11.8-15.2) 08/04/21 05:05 Hct 39.9 % (35.5-45.6) 08/04/21 05:05 MCV 82 fl (84-94) L 08/04/21 05:05 MCH 26 pg (28-32) L 08/04/21 05:05 MCHC 32 % (32-34) 08/04/21 05:05 RDW 15.2 % (13.2-15.2) 08/04/21 05:05 Plt Count 203 K/mm3 (140-440) 08/04/21 05:05 [place] % (Auto) 0.5 % (0.0-7.3) 08/03/21 06:00 Eos % (Auto) 0.3 % (0.0-4.3) 08/03/21 06:00 [place] # (Auto) 0.0 K/mm3 (0.0-0.8) 08/03/21 06:00 Eos # (Auto) 0.0 K/mm3 (0.0-0.4) 08/03/21 06:00 Baso # (Auto) 0.0 K/mm3 (0.0-0.1) 08/03/21 06:00 Add Manual Diff Complete 08/04/21 05:05 Total Counted 100 08/04/21 05:05 Seg Neutrophils % [place] 08/03/21 06:00 Seg Neuts % (Manual) 87.0 % (40.0-70.0) H 08/04/21 05:05 Band Neutrophils % 2.0 % 08/04/21 05:05 Lymphocytes % (Manual) 6.0 % (13.4-35.0) L 08/04/21 05:05 Monocytes % (Manual) 4.0 % (0.0-7.3) 08/04/21 05:05 Eosinophils % (Manual) 1.0 % (0.0-4.3) 08/04/21 05:05 Nucleated RBC % Not Reportable 08/04/21 05:05 Seg Neutrophils # 4.0 K/mm3 (1.8-7.7) 08/03/21 06:00 Seg Neutrophils # Man 9.0 K/mm3 (1.8-7.7) H 08/04/21 05:05 Band Neutrophils # 0.2 K/mm3 08/04/21 05:05 Lymphocytes # (Manual) 0.6 K/mm3 (1.2-5.4) L 08/04/21 05:05 Abs React Lymphs (Man) 0.0 K/mm3 08/04/21 05:05 Monocytes # (Manual) 0.4 K/mm3 (0.0-0.8) 08/04/21 05:05 Eosinophils # (Manual) 0.1 K/mm3 (0.0-0.4) 08/04/21 05:05 Basophils # (Manual) 0.0 K/mm3 (0.0-0.1) 08/04/21 05:05 Metamyelocytes # 0.0 K/mm3 08/04/21 05:05 Myelocytes # 0.0 K/mm3 08/04/21 05:05 Promyelocytes # 0.0 K/mm3 08/04/21 05:05 Blast Cells # 0.0 K/mm3 08/04/21 05:05 WBC Morphology Not Reportable 08/04/21 05:05 Hypersegmented Neuts Not Reportable 08/04/21 05:05 Hyposegmented Neuts Not Reportable 08/04/21 05:05 Hypogranular Neuts Not Reportable 08/04/21 05:05 Smudge Cells Not Reportable 08/04/21 05:05 Toxic Granulation Not Reportable 08/04/21 05:05 Toxic Vacuolation Not Reportable 08/04/21 05:05 Dohle Bodies Not Reportable 08/04/21 05:05 Pelger-Huet Anomaly Not Reportable 08/04/21 05:05 Stew Rods Not Reportable 08/04/21 05:05 Platelet Estimate Not Reportable 08/04/21 05:05 Clumped Platelets Not Reportable 08/04/21 05:05 Plt Clumps, EDTA Not Reportable 08/04/21 05:05 Large Platelets Not Reportable 08/04/21 05:05 Giant Platelets Not Reportable 08/04/21 05:05 Platelet Satelliting Not Reportable 08/04/21 05:05 Plt Morphology Comment Not Reportable 08/04/21 05:05 RBC Morphology Not Reportable 08/04/21 05:05 Dimorphic RBCs Not Reportable 08/04/21 05:05 Polychromasia Not Reportable 08/04/21 05:05 Hypochromasia Not Reportable 08/04/21 05:05 Poikilocytosis Not Reportable 08/04/21 05:05 Anisocytosis Few 08/04/21 05:05 Microcytosis Not Reportable 08/04/21 05:05 Macrocytosis Not Reportable 08/04/21 05:05 Spherocytes Not Reportable 08/04/21 05:05 Pappenheimer Bodies Not Reportable 08/04/21 05:05 Sickle Cells Not Reportable 08/04/21 05:05 Target Cells Not Reportable 08/04/21 05:05 Tear Drop Cells Not Reportable 08/04/21 05:05 Ovalocytes Not Reportable 08/04/21 05:05 Helmet Cells Not Reportable 08/04/21 05:05 [place] Bodies Not Reportable 08/04/21 05:05 [place] Rings Not Reportable 08/04/21 05:05 [place] Cells Not Reportable 08/04/21 05:05 Bite Cells Not Reportable 08/04/21 05:05 Crenated Cell Not Reportable 08/04/21 05:05 Elliptocytes Not Reportable 08/04/21 05:05 Acanthocytes (Spur) Not Reportable 08/04/21 05:05 Rouleaux Not Reportable 08/04/21 05:05 Hemoglobin C Crystals Not Reportable 08/04/21 05:05 Schistocytes Not Reportable 08/04/21 05:05 Malaria parasites Not Reportable 08/04/21 05:05 Nilesh Bodies Not Reportable 08/04/21 05:05 Hem Pathologist Commnt No 08/04/21 05:05 PT 14.5 Sec. (12.2-14.9) 08/03/21 06:00 INR 1.02 (0.87-1.13) 08/03/21 06:00 D-Dimer 1601.31 ng/mlDDU (0-234) H 08/03/21 08:01 VBG pH 7.339 (7.320-7.420) 08/03/21 06:00 Sodium 144 mmol/L (137-145) 08/04/21 05:05 Potassium 4.1 mmol/L (3.6-5.0) 08/04/21 05:05 Chloride 106.5 mmol/L (98-107) 08/04/21 05:05 Carbon Dioxide 29 mmol/L (22-30) 08/04/21 05:05 Anion Gap 13 mmol/L 08/04/21 05:05 BUN 12 mg/dL (9-20) 08/04/21 05:05 Creatinine 1.0 mg/dL (0.8-1.3) 08/04/21 05:05 Estimated GFR > 60 ml/min 08/04/21 05:05 BUN/Creatinine Ratio 12 % 08/04/21 05:05 Glucose 92 mg/dL (75-100) 08/04/21 05:05 POC Glucose 74 mg/dL (70-105) 08/04/21 12:11 Lactic Acid 1.50 mmol/L (0.7-2.0) 08/04/21 05:05 Calcium 8.2 mg/dL (8.4-10.2) L 08/04/21 05:05 Total Bilirubin 0.20 mg/dL (0.1-1.2) 08/03/21 06:00 AST 20 units/L (5-40) 08/03/21 06:00 ALT 14 units/L (7-56) 08/03/21 06:00 Alkaline Phosphatase 121 units/L (35-129) 08/03/21 06:00 Lactate Dehydrogenase 281 units/L (91-180) H 08/03/21 08:01 C-Reactive Protein 0.30 mg/dL (0.00-1.30) 08/03/21 08:01 NT-Pro-B Natriuret Pep 66.77 pg/mL (0-900) 08/03/21 08:01 Total Protein 7.7 g/dL (6.3-8.2) 08/03/21 06:00 Albumin 4.1 g/dL (3.9-5) 08/03/21 06:00 Albumin/Globulin Ratio 1.1 % 08/03/21 06:00 Urine Color Red (Yellow) 08/03/21 06:10 Urine Turbidity Cloudy (Clear) 08/03/21 06:10 Urine pH 5.0 (5.0-7.0) 08/03/21 06:10 Ur Specific [place] 1.019 (1.003-1.030) 08/03/21 06:10 Urine Protein 100 mg/dl mg/dL (Negative) 08/03/21 06:10 Urine Glucose (UA) Neg mg/dL (Negative) 08/03/21 06:10 Urine Ketones Neg mg/dL (Negative) 08/03/21 06:10 Urine Blood Lg (Negative) 08/03/21 06:10 Urine Nitrite Pos (Negative) 08/03/21 06:10 Urine Bilirubin Neg (Negative) 08/03/21 06:10 Urine Urobilinogen < 2.0 mg/dL (<2.0) 08/03/21 06:10 Ur Leukocyte Esterase Mod (Negative) 08/03/21 06:10 Urine WBC (Auto) > 182.0 /HPF (0.0-6.0) H 08/03/21 06:10 Urine RBC (Auto) > 182.0 /HPF (0.0-6.0) 08/03/21 06:10 U Epithel Cells (Auto) 6.0 /HPF (0-13.0) 08/03/21 06:10 Urine Bacteria (Auto) 3+ /HPF (Negative) 08/03/21 06:10 Urine Mucus Few /HPF 08/03/21 06:10 Ur Yeast w Hyphae 2+ /HPF 08/03/21 06:10 Urine Yeast (Budding) 3+ /HPF 08/03/21 06:10 Coronavirus (PCR) Negative (Negative) 08/03/21 08:44 Microbiology: Microbiology 08/03/21 05:52 Peripheral/Venous Blood Culture - Preliminary 08/03/21 06:00 Peripheral/Venous Blood Culture - Preliminary Active Medications - Current Medications Current Medications: Generic Name Dose Route Start Last Admin Trade Name Freq PRN Reason Stop Dose Admin Acetaminophen 650 mg 08/03/21 08:57 Acetaminophen 325 Mg Tab PO Q4H PRN Pain MILD(1-3)/Fever >100.5/CANDELARIA Acetaminophen 650 mg 08/03/21 11:23 08/03/21 11:25 Acetaminophen 650 Mg Rect Supp OK 650 mg Q4H PRN Administration Pain, Mild (1-3) Acetaminophen 325 mg 08/03/21 11:23 08/03/21 11:25 Acetaminophen 325 Mg Rect Supp [place] 325 mg Q6H PRN Administration Fever >101 Albuterol 2.5 mg 08/03/21 09:01 Albuterol 2.5 Mg/3 Ml Nebu IH Q4H PRN Shortness Of Breath Dextrose 50 ml 08/03/21 09:02 08/03/21 21:00 Dextrose 50% In Water (25gm) 50 Ml Syringe IV 50 ml Q30MIN PRN Administration Hypoglycemia Protocol Enoxaparin Sodium 40 mg 08/03/21 10:00 08/04/21 09:47 Enoxaparin 40 Mg/0.4 Ml Inj SUB-Q 40 mg QDAY@1000 YONY Administration Ceftriaxone Sodium 1 gm in 50 mls @ 100 mls/hr 08/04/21 08:00 08/04/21 09:47 Rocephin/Ns 1 Gm/50 Ml IV 100 mls/hr Q24H YONY Administration Insulin Human Regular 0 units 08/03/21 11:30 08/04/21 12:23 Insulin Regular, Human 100 Units/1 Ml SUB-Q Not Given ACHS YONY Protocol Ondansetron HCl 4 mg 08/03/21 08:57 Ondansetron 4 Mg/2 Ml Inj IV Q8H PRN Nausea And Vomiting Oxycodone/Acetaminophen 1 tab 08/03/21 08:57 Oxycodone /Acetaminophen 5-325mg Tab PO Q6H PRN Pain, Moderate (4-6) Sodium Chloride 10 ml 08/03/21 10:00 08/04/21 09:47 Sodium Chloride 0.9% 10 Ml Flush Syringe IV 10 ml BID YONY Administration Sodium Chloride 10 ml 08/03/21 10:00 Sodium Chloride 0.9% 10 Ml Flush Syringe IV PRN PRN LINE FLUSH
--- NOTE | 2021-08-05 07:56 | Discharge Summary ---
Providers - Providers Date of Admission: 08/03/21 08:57 Date of discharge: 08/05/21 Attending physician: COLIN GARCÍA MD 08/03/21 Consult to Case Management [CONS] Routine Services Needed at Discharge: Other Notified:: case aide Comment:: locate family, discharge planning Primary care physician: JOSUE BUENROSTRO MD Hospitalization Reason for admission: confusion, ams Condition: Serious Hospital course: Hospital course to date 08/04: Patient more alert and oriented to self only. Requiring restraints this a.m. while in the emergency department but improved on subsequent encounter. Patient BG still dropped to 70's despite maintaining over 100 the last few readings so will still need frequent monitoring. Diet not resumed, d5w and prn d50 on dec in case blood sugar remains problematic. Anticipate discharge in next 1 to 2 days. 08/05: Patient will be discharged home today. He is currently resting comfortably on room air and saturating 96%. Patient's mental status appears to have returned to baseline. Urine cultures have demonstrated growth of GNR. Patient was treated with 3 days of Rocephin IV. He will be discharged back to facility with prescription for Augmentin for an additional 3 days. Prescription has been transmitted to [facility] in [place]. He should be set up with an appointment with his primary care doctor in 3 to 5 days to discuss his hospitalization. Assessment and plan #Acute metabolic encephalopathy - Agitated on arrival requiring Geodon - On my encounter, confused, obtunded, however patient is protecting airway. - per reports ,patient mental status - unclear baseline, will need to call facility to evaluate #Severe Sepsis - tachycardic and febrile on arrival, suprapubic catheter likely source - lactic acid 4.5- > 3.2. - management as under UTI #Urinary tract infection - given systemic symptoms will treat as presumed UTI. Patient apparently had no output in Herring collection bag. Apparently Herring collection bag had been clamped accidentally - UA demonstrate elevated WBC and LE however this is likely colonization from chronic suprapubic catheter. - Rocephin IV #Pulmonary edema - Currently 100% on 2L on encounter, will de-escalate as patient tolerates. - noted on CXR, patient also has findings of bilateral - fluid restriction given exam findings. - ECHO ordered, unclear cardiac hx. #Mediastinal adenopathy - noted on CTA chest, suggestive of possible lymphoma. Radiology recommend PET/CT, can obtain OP. #Hypoglycemia - BG 52 on admission - hypoglycemic protocol - low blood sugar readings overnight Disposition: 03 [facility]AY FACILITY Final Discharge Diagnosis (Prints w/discharge instructions): urinary tract infection Time spent for discharge: 35 Core Measure Documentation - Palliative Care Palliative Care/ Comfort Measures: Not Applicable - Core Measures Any of the following diagnoses?: none Exam - Physical Exam Narrative exam: Physical Exam: VITAL SIGNS: Reviewed. GENERAL: Elderly gentleman, ill appearing, more alert but confused on encounter.. Vital signs as documented. HEAD: No signs of head trauma. EYES: Pupils are equal. Extraocular motions intact. EARS: Hearing grossly intact. MOUTH: Oropharynx is dry. NECK: No adenopathy, no JVD. CHEST: Chest with bilateral rales on auscultation. CARDIAC: Regular rate and rhythm. S1 and S2, without murmurs, gallops, or rubs. VASCULAR: Bilateral pitting edema 1-2+. Peripheral pulses normal and equal in all extremities. ABDOMEN: Soft, non tender and non distended. No rebound or guarding, and no masses palpated. Bowel Sounds normal. MUSCULOSKELETAL: Good range of motion of all major joints. Extremities without clubbing, cyanosis or edema. NEUROLOGIC EXAM: Alert oriented x 1 to self. no focal sensory or strength deficits. PSYCHIATRIC: Mood normal. SKIN: detail exam as documented in skin assessment - Constitutional Vitals: Temp Pulse Resp BP Pulse Ox 97.5 F L 84 18 118/58 97 08/05/21 04:03 08/05/21 04:03 08/05/21 07:21 08/05/21 04:03 08/05/21 07:21 Plan Activity: advance as tolerated Weight Bearing Status: Weight Bear as Tolerated Diet: low fat, low cholesterol, low salt Follow up with: JOSUE BUENROSTRO MD [Primary Care Provider] - 7 Days Prescriptions: Amoxicillin/Potassium Clav [Augmentin 500-125 Tablet] 1 each PO BID 3 Days #6 tablet
[2021-08-05] MEDS: INSULIN REGULAR, HUMAN 100 UNITS/1 ML SUB-Q SCH (08:11)
[2021-08-05] MEDS: cefTRIAXone/NS 1 GM/50 ML 1 GM/50 ML BAG IV SCH (08:54)
[2021-08-05 09:00] VITALS: BP 129/70
[2021-08-05] MEDS: IPRATROPIUM/ALBUTEROL SULFATE 3 ML AMPUL.NEB IH SCH ×2 (09:23→12:08)
[2021-08-05] MEDS: ENOXAPARIN 40 MG/0.4 ML INJ SUB-Q SCH (10:45)
== END 2021-08-05 13:57 | disposition home or self-care (01) | DRG 871 ==
LOC: ED 04:42 → 3A 08:57 → CC1 21:19 → 4A 08-04 09:23
PROVIDERS: ADMIT Internal Medicine; ATTEND Internal Medicine
DX: A41.9 Sepsis, unspecified organism (principal); G93.41 Metabolic encephalopathy; N39.0 Urinary tract infection, site not specified; J81.1 Chronic pulmonary edema; R65.20 Severe sepsis without septic shock; R59.0 Localized enlarged lymph nodes; B96.89 Other specified bacterial agents as the cause of diseases classified elsewhere; Z20.822 Contact with and (suspected) exposure to COVID-19; I10 Essential (primary) hypertension; J44.9 Chronic obstructive pulmonary disease, unspecified; F03.90 Unspecified dementia, unspecified severity, without behavioral disturbance, psychotic disturbance, mood disturbance, and anxiety; R31.9 Hematuria, unspecified; E16.2 Hypoglycemia, unspecified
CPT/HCPCS: 36415; 71045; 71275; 80048; 80053; 81001; 82140; 82805; 82962; 83615; 83880; 84145; 85007; 85025; 85379; 85610; 86140; 87040; 87076; 87086; 87186; 93005; 93306; 94640; 94760; G0378; J0696; J1650; J3486; J7030; J7040; J7070; Q9967; U0003

== ENCOUNTER 2022-04-05 11:48 | Emergency (ER) | payer MEDICARE ==
[2022-04-05 14:08] LABS: Basophils # (Auto) 0.1 K/mm3 (0.0-0.1); Basophils % (Auto) 2.6 % (0.0-1.8); Eosinophils # (Auto) 0.2 K/mm3 (0.0-0.4); Eosinophils % (Auto) 4.6 % (0.0-4.3); Hematocrit 53.7 % (35.5-45.6); Hemoglobin 17.7 gm/dl (11.8-15.2); Lymphocytes # (Auto) 1.6 K/mm3 (1.2-5.4); Lymphocytes % (Auto) 33.2 % (13.4-35.0); Mean Corpuscular HGB Conc 33 % (32-34); Mean Corpuscular Volume 86 fl (84-94); Monocytes # (Auto) 0.3 K/mm3 (0.0-0.8); Platelet Count 221 K/mm3 (140-440); Red Blood Count 6.22 M/mm3 (3.65-5.03); Red Cell Distribution Width 15.4 % (13.2-15.2)
[2022-04-05 14:53] LABS: Alanine Aminotransferase 15 units/L (7-56); BUN/Creatinine Ratio 19; Blood Urea Nitrogen 17 mg/dL (9-20); Calcium 10.2 mg/dL (8.4-10.2); Hemolysis Index 18
--- NOTE | 2022-04-05 15:44 | Emergency Department Report ---
ED Abdominal Pain HPI - General Chief Complaint: Abdominal Pain Stated Complaint: ABD PAIN/FROM NH Time Seen by Provider: 04/05/22 12:37 Source: EMS Mode of arrival: Stretcher Limitations: Altered Mental Status, Physical Limitation - History of Present Illness Initial Comments: 82-year-old male with a past medical history of suprapubic catheter, COPD, d ementia, hypertension presents to the hospital from care home with complaints of abdominal pain since yesterday. Patient currently denies pain. Oriented to self only. He is not oriented to year (states is 1985) or place ([place] He states he was having abdominal pain but denies at this time. No other symptoms reported As per progress note from [facility] today at 10:40 AM "resident report abdominal pain, clutching his abdomen. Assessed and was noted to have hypoactive bowel sounds in all 4 quadrants. Abdomen was soft but when p alpated he complained of pain in all 4 quadrants. He was reported to have not eaten today and has not taken his medications." Severity scale (0 -10): 3 - Related Data Previous Rx's Medication Instructions Recorded Last Taken Type Amoxicillin/Potassium Clav 1 each PO BID 3 Days #6 tablet 08/05/21 Unknown Rx [Augmentin 500-125 Tablet] cefUROXime [Ceftin] 500 mg PO Q12H 7 Days tab 04/05/22 Unknown Rx Allergies Allergy/AdvReac Type Severity Reaction Status Date / Time No Known Allergies Allergy Verified 04/05/22 12:27 ED Review of Systems ROS: Stated complaint: ABD PAIN/FROM NH Other details as noted in HPI Comment: All other systems reviewed and negative ED Past Medical Hx - Past Medical History Hx Hypertension: Yes Hx COPD: Yes Hx Dementia: Yes - Social History Smoking Status: Former Smoker - Medications Home Medications: Home Medications Medication Instructions Recorded Confirmed Last Taken Type Amoxicillin/Potassium Clav 1 each PO BID 3 Days #6 tablet 08/05/21 Unknown Rx [Augmentin 500-125 Tablet] cefUROXime [Ceftin] 500 mg PO Q12H 7 Days tab 04/05/22 Unknown Rx ED Physical Exam - General Limitations: Altered Mental Status, Physical Limitation - Other Other exam information: General: No acute distress Head: Atraumatic Eyes: normal appearance ENT: Moist mucous membranes Neck: Normal appearance, no midline tenderness Chest: Clear to auscultation bilaterally CV: Regular rate and rhythm Abdomen: Soft, normal bowel sounds, nontender, nondistended, no rebound or gua rding. Suprapubic catheter Back: Normal inspection Extremity: Normal inspection, full range of motion Neuro: Alert O x 1, no facial asymmetry, speech clear, no gross motor sensory deficit Psych: Appropriate behavior Skin: No rash ED Course Vital Signs 04/05/22 04/05/22 04/05/22 12:20 13:21 15:48 Temperature 98.0 F Pulse Rate 90 74 69 Respiratory 18 15 15 Rate Blood Pressure 106/68 109/61 [Left] O2 Sat by Pulse 95 93 97 Oximetry ED Medical Decision Making - Lab Data Result diagrams: 04/05/22 13:02 04/05/22 13:02 - Radiology Data Radiology results: report reviewed CT abdomen pelvis wo con INDICATION / CLINICAL INFORMATION: abd pain prior to arrival, dementia. TECHNIQUE: CT abdomen pelvis without contrast All CT scans at this location are performed using CT dose reduction for ALARA by means of automated exposure control. COMPARISON: None available. FINDINGS: Abdomen and pelvis: Exam is limited by motion artifact. Scattered nodularity is noted within both lower lungs poorly identified given motion Much of the abdomen and pelvis is difficult to visualize given the degree of motion artifact. The liver, gallbladder, spleen, pancreas adrenal glands and kidneys are grossly unremarkable within the limits of the exam. No obvious free air or free fluid is appreciated. Suprapubic catheter is present. The prostate is severely enlarged measuring 6.5 cm in diameter. No definite free pelvic fluid is identified. Review of bone windows demonstrates severe thoracolumbar degenerative changes. IMPRESSION: 1. Small left pleural effusion. 2. No definite acute findings within the abdomen appreciated within the limits of the exam 3. Severe prostate enlargement. Suprapubic catheter noted. - Medical Decision Making 82-year-old male with a past medical history of dementia and suprapubic catheter presents to the hospital with complaints of abdominal pain as per [facility] documentation. After arrival to the ED patient did not endorse any abdominal pain and had a nontender abdominal exam. Work-up was performed due to underlying dementia. No acute findings identified on CAT scan noncontrast. UA collected from Herring catheter port and reveals UTI. Differential includes acute UTI versus colonization secondary to suprapubic catheter. No signs of sepsis or septic shock. CT reveals a severely enlarged prostate which is likely the cause of suprapubic catheter placement. Patient received 1 dose of IM Rocephin. Patient will be discharged on cephalosporin for suprapubic catheter associated UTI and discharged back to [facility] Critical Care Time: No Critical care attestation.: If time is entered above; I have spent that time in minutes in the direct care of this critically ill patient, excluding procedure time. ED Disposition Clinical Impression: UTI (urinary tract infection), Suprapubic catheter Disposition: 01 HOME / SELF CARE / HOMELESS Is pt being admited?: No Does the pt Need Aspirin: No Condition: Stable Instructions: Urinary Tract Infection, Adult Additional Instructions: Take the medication as prescribed. Follow-up with your doctor or doctor/clinic provided. Return if symptoms worsen as indicated by your discharge instruct ions. Prescriptions: cefUROXime [Ceftin] 500 mg PO Q12H 7 Days tab Referrals: PRIMARY CAREMD [Primary Care Provider] - 3-5 Days GIOVANA EASLEY MD [Staff Physician] - 3-5 Days Time of Disposition: 18:43
[2022-04-05 16:40] VITALS: BP 109/61
[2022-04-05 17:08] LABS: Bilirubin,Urine NEG (Negative); Blood,Urine LG (Negative); Color,Urine Yellow (Yellow)
[2022-04-05 17:17] LABS: Bacteria,Urine 4+ /HPF (Negative); Mucus,Urine 1+ /HPF
[2022-04-05 17:18] LABS: WBC,Urine > 182.0 /HPF (0.0-6.0)
[2022-04-05] MEDS ORDERED: LIDOCAINE-MPF (1%) 10 MG/1 ML VIAL 5 ML INFILTRATI ONE (18:13)
--- NOTE | 2022-04-05 18:37 | Cat Scan Report ---
CT abdomen pelvis wo con INDICATION / CLINICAL INFORMATION: abd pain prior to arrival, dementia. TECHNIQUE: CT abdomen pelvis without contrast All CT scans at this location are performed using CT dose reductio n for ALARA by means of automated exposure control. COMPARISON: None available. FINDINGS: Abdomen and pelvis: Exam is limited by motion artifact. Scattered nodularity is noted within both low er lungs poorly identified given motion Much of the abdomen and pelvis is difficult to visualize given the degree of motion artifact. The nish er, gallbladder, spleen, pancreas adrenal glands and kidneys are grossly unremarkable within the limi ts of the exam. No obvious free air or free fluid is appreciated. Suprapubic catheter is present. The prostate is severely enlarged measuring 6.5 cm in diameter. No definite free pelvic fluid is identif ied. Review of bone windows demonstrates severe thoracolumbar degenerative changes. IMPRESSION: 1. Small left pleural effusion. 2. No definite acute findings within the abdomen appreciated within the limits of the exam 3. Severe prostate enlargement. Suprapubic catheter noted. Signer Name: Larry Bullock MD Signed: 04/05/2022 6:33 PM Workstation Name: [employer]
== END 2022-04-05 23:30 | disposition home or self-care (01) ==
LOC: ED 11:48
DX: T83.518A Infection and inflammatory reaction due to other urinary catheter, initial encounter (principal); N39.0 Urinary tract infection, site not specified; Z87.891 Personal history of nicotine dependence; I10 Essential (primary) hypertension
CPT/HCPCS: 36415; 74176; 80053; 81001; 83690; 85025; 96372; 99284; J0696; J3490